=== PATIENT | female | born 1965 | race Caucasian/White ===

== ENCOUNTER 2018-03-07 13:11 | Inpatient (IN) | END 2018-03-11 14:53 | disposition home health service (06) | DRG 30 ==

== ENCOUNTER 2019-03-31 15:30 | Inpatient (IN) | payer MEDICAID ==
[~2019-03-31] VITALS: Ht 170.2 cm; Wt 80.0 kg
[2019-04-01] VITALS (50 sets, daily range): BP systolic 86–140; BP diastolic 61–83; PULSE 60–102; RESP 9–20; Ht 170.2 cm; Wt 80.0 kg
[2019-04-01] MEDS ORDERED: AMLO2.5T78 PO (07:37)
[2019-04-01] MEDS ORDERED: METO-429 PO (07:37)
[2019-04-01] MEDS ORDERED: TRAM50TA PO (07:38)
[2019-04-01] MEDS ORDERED: GABA300C16 PO (07:38)
[2019-04-01] MEDS ORDERED: POLYMYXIN/BACITRACIN 1L IRRIG ONE (08:58)
--- NOTE | 2019-04-01 08:59 | PREAC ---
Date/Time of Note Date/Time of Note DATE: 04/01/19 TIME: 08:55 Anesthesia Eval and Record Evaluation Time Pre-Procedure Interview DATE: 04/01/19 TIME: 08:55 Age 54 Sex female NPO: 8 hrs Preoperative diagnosis Cervical stenosis Planned procedure Anterior Cervical decompression Past Medical History Past Medical History: None Cardio: HTN Surgery & Anesthesia Issues No known issue Meds Anticoagulation: No Beta Allan within 24 hr: Yes Reported Medications Gabapentin* (Gabapentin*) 300 Mg Capsule, 300 MG PO QHS, #60 CAP 04/01/19 Tramadol Hcl* (Ultram*) 50 Mg Tablet, 100 MG PO QHS PRN for PAIN, TAB 04/01/19 Amlodipine Besylate* (Amlodipine Besylate*) 2.5 Mg Tablet, 2.5 MG PO QHS, #30 TAB 04/01/19 Metoprolol Tartrate* (Lopressor*) 50 Mg Tab, 50 MG PO QHS, #60 TAB 04/01/19 Meds reviewed: Yes Allergies Coded Allergies: codeine (Verified Adverse Reaction, Mild, nausea/ vomiting, 04/01/19) Allergies Reviewed: Yes Labs/Studies Labs Reviewed: Reviewed by anesthesiologist Blood Bank Test 04/01/19 07:45 Blood Type O NEGATIVE test: Negative Studies: ECG Pre-procedure Exam Last vitals Vital Signs Date Temp Pulse Resp B/P (MAP) Pulse Ox O2 O2 Flow FiO2 Time Delivery Rate 04/01/19 98.4 60 18 120/73 96 Room Air 08:03 (89) Airway: Adequate mouth opening, Adequate thyromental dist Mallampati: Mallampati II Teeth: Normal Lung: Normal Heart: Normal ASA Physical Status ASA physical status: 3 Emergency: None Planned Anesthetic General/MAC: ETT Planned Pain Management Parenteral pain med Pre-operative Attestations Prior to commencing anesthesia and surgery, the patient was re-evaluated, there was verification of: *The patient's identity *The results of appropriate recent lab work and preoperative vital signs *The above evaluation not changing prior to induction *Anesthetic plan, risk benefits, alternative and complications discussed with patient/family; questions answered; patient/family understands, accepts and w ishes to proceed. KAE FELICIANO MD April 01, 2019 08:59
[2019-04-01] MEDS ORDERED: MIDAZOLAM 1 MG/ML 2 ML INJ ONE ×2 (09:22→12:06)
--- NOTE | 2019-04-01 09:23 | HPN ---
Date/Time of Note Date/Time of Note DATE: 04/01/19 TIME: 09:22 Interval H&P Admission Note Pt. seen H&P reviewed: No system changes Discussed with patient and family options of surgery vs no surgery, overall risks 3-5% as printed on my preop consent form GRUPO DIANA MD April 01, 2019 09:23
[2019-04-01] MEDS ORDERED: DEXAMETHASONE 4 MG/ML 5 ML INJ ONE (10:01)
[2019-04-01] MEDS ORDERED: GELATIN SIZE 100 SPONGE ONE (11:11)
[2019-04-01] MEDS ORDERED: THROMBIN 5000 UNIT VIAL ONE (11:11)
[2019-04-01] MEDS ORDERED: PROPOFOL 20 ML ONE (11:36)
[2019-04-01] MEDS ORDERED: CEFAZOLIN 1 GM INJ ONE (11:36)
[2019-04-01] MEDS ORDERED: ROCURONIUM 50 MG INJ ONE (11:36)
[2019-04-01] MEDS ORDERED: LIDOCAINE 2% (SDV) 5 ML INJ ONE (11:36)
[2019-04-01] MEDS ORDERED: ONDANSETRON 4 MG INJ ONE (11:43)
[2019-04-01] MEDS ORDERED: METOCLOPRAMIDE 10 MG INJ ONE (11:43)
--- NOTE | 2019-04-01 12:11 | OPPN ---
Date/Time of Note Date/Time of Note DATE: 04/01/19 TIME: 12:10 Operative Report Preoperative Diagnosis Cervical Myelopathy Postoperative Diagnosis Same Operation/Procedure Performed ACDF C4-7 Surgeon see signature line home care assistant HERNANDEZ Wheatley, ACNP-BC Anesthesia: general Estimated blood loss: 10 - 50 ml's Transfusion Required none Specimen C4-7 disc Grafts/Implants none Complications none GRUPO DIANA MD April 01, 2019 12:11
--- NOTE | 2019-04-01 12:20 | PAC ---
Date/Time of Note Date/Time of Note DATE: 04/01/19 TIME: 12:19 Post-Anesthesia Notes Post-Anesthesia Note Last documented vital signs Vital Signs Date Temp Pulse Resp B/P (MAP) Pulse Ox O2 O2 Flow FiO2 Time Delivery Rate 04/01/19 98.2 12:16 04/01/19 60 18 120/73 96 Room Air 08:03 (89) Activity: WNL Respiratory function: WNL Cardiovascular function: WNL Mental status: Baseline Pain reasonably controlled: Yes Hydration appropriate: Yes Nausea/Vomiting absent: Yes Comments BP:123/61, P:74, Spo2:100%, T:98,8 KAE FELICIANO MD April 01, 2019 12:20
[2019-04-01] MEDS ORDERED: NACL 0.9% 3 ML SYG IV SCH (12:30)
[2019-04-01] MEDS ORDERED: DIPHENHYDRAMINE 50 MG INJ IV PRN (12:30)
[2019-04-01] MEDS ORDERED: METOCLOPRAMIDE 10 MG INJ IV PRN (12:30)
[2019-04-01] MEDS ORDERED: AL HYDROX/MG HYDROX/SIMETH 30 ML CUP PO PRN (12:30)
[2019-04-01] MEDS ORDERED: NALOXONE (0.4 MG/ML) INJ IV PRN (12:30)
[2019-04-01] MEDS ORDERED: ONDANSETRON 4 MG INJ IV PRN (12:30)
[2019-04-01] MEDS ORDERED: MIDAZOLAM 1 MG/ML 2 ML INJ IV PRN (12:30)
[2019-04-01] MEDS ORDERED: HYDROmorphONE 1 MG/5 ML IV SYRINGE IV PRN (12:30)
[2019-04-01] MEDS: NS + KCL 20 MEQ 1,000 ML IV SCH ×2 (13:01→23:17)
[2019-04-01] MEDS: DOCUSATE SODIUM 100 MG CAP PO SCH ×2 (13:03→21:46)
[2019-04-01] MEDS: HYDROmorphONE 1 MG/5 ML IV SYRINGE IV PRN ×2 (13:05→13:15)
[2019-04-01] MEDS: FENTAnyl 50 MCG/ML VIAL IV PRN ×4 (14:17→15:15)
[2019-04-01] MEDS: CEFAZOLIN 2 GM/50 ML (PMX) 50 ML IVPB SCH ×2 (14:19→23:16)
[2019-04-01] MEDS: ONDANSETRON 4 MG INJ IV PRN ×2 (17:11→20:40)
[2019-04-01] MEDS: HYDROmorphONE 0.5 MG/0.5 ML SYG IV PRN ×2 (17:11→21:13)
--- NOTE | 2019-04-01 18:58 | HP ---
Date/Time of Note Date/Time of Note DATE: 04/01/19 TIME: 18:51 Assessment/Plan VTE Prophylaxis Risk score (from Ns)>0 risk: 5 SCD applied (from Ns): Yes Pharmacological prophylaxis: NA/contraindicated Pharm contraindication: surgical contra Lines/Catheters IV Catheter Type (from Nrsg): A Line Urinary Cath still in place: Yes Reason Cath still needed: urinary retention Assessment/Plan Assessment/Plan -Cervical Myelopathy. S/p ACDF C4-7 Dr. Betts 04/01/2019. Continue IV fluids and postoperative antibiotics, cervical collar. Continue [place] and Dilaudid for pain and Zofran as needed for nausea. -Hypertension, continue metoprolol and Norvasc. Further recommendations based on clinical course. Plan of care discussed with Dr. Kapoor. HPI/ROS Admit Date/Time Admit Date/Time April 01, 2019 at 06:41 Hx of Present Illness The patient is a 54-year-old female with history of hypertension and prior cervical surgery was evaluated by Dr. Betts for cervical myelopathy. Patient was brought to the hospital and underwent a cervical decompression and fusion. Postoperatively patient is experiencing pain and patient is admitted to intensive care unit for further management. Patient denies any nausea and vomi ting. ROS Point review of systems negative except for what mentioned in HPI PMH/Family/Social Past Medical History Medical History: hypertension Medications Current Medications Acetaminophen/ Hydrocodone Bitart ([place] (5/325)) 1 tab Q4H PRN PO .PAIN 1-5; Start 04/01/19 at 12:30 Ondansetron HCl (Zofran Inj) 4 mg Q6H PRN IV NAUSEA/VOMITING Last administered on 04/01/19at 17:11; Admin Dose 4 MG; Start 04/01/19 at 12:30 Al Hydrox/Mg Hydrox/Simethicone (Mag-Al Plus) 15 ml Q4H PRN PO .CONSTIPATION; Start 04/01/19 at 12:30 Docusate Sodium (Colace) 100 mg BID PO Last administered on 04/01/19at 13:03; Admin Dose 100 MG; Start 04/01/19 at 12:30 IV Flush (NS 3 ml) 3 ml PER PROTOCOL IV ; Start 04/01/19 at 12:30 Naloxone HCl (Narcan) 0.2 mg Q2M PRN IV RR 8 BREATHS/MIN OR LESS; Start 04/01/19 at 12:30 Cefazolin Sodium/ Dextrose 50 ml @ 100 mls/hr Q8 IVPB Last administered on 04/01/19at 14:19; Admin Dose 100 MLS/HR; Start 04/01/19 at 14:00 Potassium Chloride/Sodium Chloride 1,000 ml @ 100 mls/hr Q10H IV Last administered on 04/01/19at 13:01; Admin Dose 100 MLS/HR; Start 04/01/19 at 12:30 Hydromorphone HCl (Dilaudid) 0.5 mg Q4H PRN IV SEVERE PAIN LEVEL 7-10 Last administered on 04/01/19at 17:11; Admin Dose 0.5 MG; Start 04/01/19 at 12:30 Coded Allergies: codeine (Verified Adverse Reaction, Mild, nausea/ vomiting, 04/01/19) Past Surgical History Past Surgical Hx: other (Status post posterior cervical decompression and fusion in February 2018) Social History Alcohol Use: none Smoking Status: Current some day smoker Drug Use: none Exam/Review of Systems Vital Signs Vitals Vital Signs Date Temp Pulse Resp B/P (MAP) Pulse Ox O2 O2 Flow FiO2 Time Delivery Rate 04/01/19 98.8 75 11 112/83 95 Room Air 18:00 (93) 04/01/19 2.0 16:10 Exam Constitutional: alert, oriented Head: normocephalic Neck: other (Status post surgery with anterior incision, cervical collar) Respiratory: clear to auscultation Cardiovascular: regular rate and rhythm Gastrointestinal: soft, non-tender Musculoskeletal: nl extremities to inspection Extremities: normal pulses ROBE CALLES April 01, 2019 18:58
[2019-04-01] MEDS: METOPROLOL 50 MG TAB PO SCH (21:00)
[2019-04-01] MEDS: AMLODIPINE 2.5 MG TAB PO SCH (21:00)
[2019-04-02] VITALS (18 sets, daily range): BP systolic 106–130; BP diastolic 69–118; PULSE 64–109; RESP 10–22
[2019-04-02] MEDS: ONDANSETRON 4 MG INJ IV PRN ×2 (04:12→11:42)
[2019-04-02] MEDS: HYDROmorphONE 0.5 MG/0.5 ML SYG IV PRN ×2 (04:22→11:42)
[2019-04-02] MEDS: CEFAZOLIN 2 GM/50 ML (PMX) 50 ML IVPB SCH ×2 (06:01→13:55)
[2019-04-02] MEDS: NS + KCL 20 MEQ 1,000 ML IV SCH (10:21)
[2019-04-02] MEDS: DOCUSATE SODIUM 100 MG CAP PO SCH ×2 (10:21→20:50)
--- NOTE | 2019-04-02 14:13 | PN ---
Date/Time of Note Date/Time of Note DATE: 04/02/19 TIME: 14:13 Assessment/Plan VTE Prophylaxis Risk score (from Nsg)>0 risk: 9 SCD applied (from Nsg): Yes SCD contraindicated: low risk/ambulating Pharmacological prophylaxis: NA/contraindicated Pharm contraindication: low risk/ambulating Lines/Catheters IV Catheter Type (from Nrsg): Saline Lock [place] line still needed: No Urinary Cath still in place: No Assessment/Plan Assessment/Plan Impression s/p ACDF C4-7. POD #[address] cspine stable , well placed screws and hardware surgical site: CDI pain well controlled Plan okay to downgrade stable for dc in am and follow up in 2 weeks collar when oob x 6 weeks IS x 10 dc pena Result Diagram: 04/02/1942904/02/19429 Results 24hrs Laboratory Tests Test 04/02/19 04:30 04/02/19 04:59 Hemoglobin 12.5 Hematocrit 37.5 Sodium Level 137 Potassium Level 4.3 Chloride Level 105 Carbon Dioxide Level 25 Anion Gap 7 Blood Urea Nitrogen 13 Creatinine 0.61 Est Glomerular Filtrat Rate mL/min > 60 Glucose Level 128 Calcium Level 8.7 Lab Scanned Report REFERENCE LAB Subjective 24 Hr Interval Summary Free Text/Dictation Neurosurgery S: S/P PCDF C4-7. POD #1 Exam/Review of Systems Exam Vitals Vital Signs Date Temp Pulse Resp B/P (MAP) Pulse Ox O2 O2 Flow FiO2 Time Delivery Rate 04/02/19 86 11 116/78 95 Room Air 12:00 (91) 04/02/19 98.4 04:00 04/01/19 2.0 16:10 Intake and Output 04/01/19 04/01/19 04/02/19 1515:00 23:00 07:00 IntakeIntake Total 1550 ml 1210 ml 800 ml OutputOutput Total 220 ml 1515 ml 875 ml BalanceBalance 1330 ml -305 ml -75 ml Neurological: other (MS: AAOX4 CN:PERRL M: FC x 4 , no new focal def. ) Results Results 24hrs Laboratory Tests Test 04/02/19 04:30 04/02/19 04:59 Hemoglobin 12.5 Hematocrit 37.5 Sodium Level 137 Potassium Level 4.3 Chloride Level 105 Carbon Dioxide Level 25 Anion Gap 7 Blood Urea Nitrogen 13 Creatinine 0.61 Est Glomerular Filtrat Rate mL/min > 60 Glucose Level 128 Calcium Level 8.7 Lab Scanned Report REFERENCE LAB Medications Medication Current Medications Acetaminophen/ Hydrocodone Bitart ([place] (5/325)) 1 tab Q4H PRN PO .PAIN 1-5; Start 04/01/19 at 12:30 Ondansetron HCl (Zofran Inj) 4 mg Q6H PRN IV NAUSEA/VOMITING Last administered on 04/02/19 11:42; Admin Dose 4 MG; Start 04/01/19 at 12:30 Al Hydrox/Mg Hydrox/Simethicone (Mag-Al Plus) 15 ml Q4H PRN PO .CONSTIPATION; Start 04/01/19 at 12:30 Docusate Sodium (Colace) 100 mg BID PO Last administered on 04/02/19 10:21; Admin Dose 100 MG; Start 04/01/19 at 12:30 IV Flush (NS 3 ml) 3 ml PER PROTOCOL IV ; Start 04/01/19 at 12:30 Naloxone HCl (Narcan) 0.2 mg Q2M PRN IV RR 8 BREATHS/MIN OR LESS; Start 04/01/19 at 12:30 Cefazolin Sodium/ Dextrose 50 ml @ 100 mls/hr Q8 IVPB Last administered on 04/02/19at 13:55; Admin Dose 100 MLS/HR; Start 04/01/19 at 14:00 Potassium Chloride/Sodium Chloride 1,000 ml @ 100 mls/hr Q10H IV Last administered on 04/02/19 10:21; Admin Dose 100 MLS/HR; Start 04/01/19 at 12:30 Hydromorphone HCl (Dilaudid) 0.5 mg Q4H PRN IV SEVERE PAIN LEVEL 7-10 Last administered on 04/02/19 11:42; Admin Dose 0.5 MG; Start 04/01/19 at 12:30 Amlodipine Besylate (Norvasc) 2.5 mg QHS PO ; Start 04/01/19 at 21:00 Metoprolol Tartrate (Lopressor) 50 mg QHS PO ; Start 04/01/19 at 21:00 GRUPO DIANA MD April 02, 2019 14:13
--- NOTE | 2019-04-02 19:03 | PN ---
Date/Time of Note Date/Time of Note DATE: 04/02/19 TIME: 19:01 Assessment/Plan VTE Prophylaxis Risk score (from Ns)>0 risk: 9 SCD applied (from Ns): Yes Pharmacological prophylaxis: NA/contraindicated Pharm contraindication: surgical contra Lines/Catheters IV Catheter Type (from Nrsg): Saline Lock Urinary Cath still in place: No Assessment/Plan Hospital Course Patient is awake alert, pain is adequately controlled stable to transfer to medical surgical floor. Continue PT with cervical collar. If patient continues to improve anticipate discharge home tomorrow morning. Assessment/Plan -Cervical Myelopathy. S/p ACDF C4-7 Dr. Betts 04/01/2019. Continue IV fluids and postoperative antibiotics, cervical collar. Continue [place] and Dilaudid for pain and Zofran as needed for nausea. -Hypertension, continue metoprolol and Norvasc. Further recommendations based on clinical course. Plan of care discussed with Dr. Kapoor. Result Diagram: 04/02/19 0430 04/02/19 0430 Results 24hrs Laboratory Tests Test 04/02/19 04:30 04/02/19 04:59 Hemoglobin 12.5 Hematocrit 37.5 Sodium Level 137 Potassium Level 4.3 Chloride Level 105 Carbon Dioxide Level 25 Anion Gap 7 Blood Urea Nitrogen 13 Creatinine 0.61 Est Glomerular Filtrat Rate mL/min > 60 Glucose Level 128 Calcium Level 8.7 Lab Scanned Report REFERENCE LAB Exam/Review of Systems Exam Vitals Vital Signs Date Temp Pulse Resp B/P (MAP) Pulse Ox O2 O2 Flow FiO2 Time Delivery Rate 04/02/19 12 116/69 97 Room Air 16:00 (85) 04/02/19 76 16:00 04/02/19 98.3 15:00 04/01/19 2.0 16:10 Intake and Output 04/01/19 04/01/19 04/02/19 1515:00 23:00 07:00 IntakeIntake Total 1550 ml 1210 ml 800 ml OutputOutput Total 220 ml 1515 ml 875 ml BalanceBalance 1330 ml -305 ml -75 ml Exam Constitutional: alert, oriented Head: normocephalic Neck: other (Status post surgery with anterior incision, cervical collar) Respiratory: clear to auscultation Cardiovascular: regular rate and rhythm Gastrointestinal: soft, non-tender Musculoskeletal: nl extremities to inspection Extremities: normal pulses Results Results 24hrs Laboratory Tests Test 04/02/19 04:30 04/02/19 04:59 Hemoglobin 12.5 Hematocrit 37.5 Sodium Level 137 Potassium Level 4.3 Chloride Level 105 Carbon Dioxide Level 25 Anion Gap 7 Blood Urea Nitrogen 13 Creatinine 0.61 Est Glomerular Filtrat Rate mL/min > 60 Glucose Level 128 Calcium Level 8.7 Lab Scanned Report REFERENCE LAB Medications Medication Current Medications Acetaminophen/ Hydrocodone Bitart ([place] (5/325)) 1 tab Q4H PRN PO .PAIN 1-5; Start 04/01/19 at 12:30 Ondansetron HCl (Zofran Inj) 4 mg Q6H PRN IV NAUSEA/VOMITING Last administered on 04/02/19 11:42; Admin Dose 4 MG; Start 04/01/19 at 12:30 Al Hydrox/Mg Hydrox/Simethicone (Mag-Al Plus) 15 ml Q4H PRN PO .CONSTIPATION; Start 04/01/19 at 12:30 Docusate Sodium (Colace) 100 mg BID PO Last administered on 04/02/19at 10:21; Admin Dose 100 MG; Start 04/01/19 at 12:30 IV Flush (NS 3 ml) 3 ml PER PROTOCOL IV ; Start 04/01/19 at 12:30 Naloxone HCl (Narcan) 0.2 mg Q2M PRN IV RR 8 BREATHS/MIN OR LESS; Start 04/01/19 at 12:30 Cefazolin Sodium/ Dextrose 50 ml @ 100 mls/hr Q8 IVPB Last administered on 04/02/19at 13:55; Admin Dose 100 MLS/HR; Start 04/01/19 at 14:00 Hydromorphone HCl (Dilaudid) 0.5 mg Q4H PRN IV SEVERE PAIN LEVEL 7-10 Last administered on 04/02/19at 11:42; Admin Dose 0.5 MG; Start 04/01/19 at 12:30 Amlodipine Besylate (Norvasc) 2.5 mg QHS PO ; Start 04/01/19 at 21:00 Metoprolol Tartrate (Lopressor) 50 mg QHS PO ; Start 04/01/19 at 21:00 ROBE CALLES April 02, 2019 19:03
[2019-04-02] MEDS ORDERED: ONDANSETRON 4 MG TAB PO PRN (20:00)
[2019-04-02] MEDS: METOPROLOL 50 MG TAB PO SCH (20:49)
[2019-04-02] MEDS: AMLODIPINE 2.5 MG TAB PO SCH (20:50)
[2019-04-02] MEDS: HYDROCODONE/APAP (5/325) TAB PO PRN (20:51)
[2019-04-03] MEDS: HYDROCODONE/APAP (5/325) TAB PO PRN ×2 (02:42→08:16)
[2019-04-03 08:00] VITALS: BP 120/90; PULSE 74; RESP 16
[2019-04-03] MEDS: DOCUSATE SODIUM 100 MG CAP PO SCH (08:16)
--- NOTE | 2019-04-03 11:26 | PN ---
DATE: 04/03/2019 SUBJECTIVE: Follow up on C-spine surgery for cervical myelopathy. The patient reports improvement i n postoperative pain. Denies any chest pain or shortness of breath. The patient had low grade tempe rature last night and this morning she is afebrile. Denies any chest pain or abdominal pain. No rep orted vomiting. The patient moves all extremities. NEUROLOGIC: The patient is awake, alert, fairly oriented. VITAL SIGNS: Temperature 98, pulse 74, respirations 16, blood pressure 120/90, O2 saturation 98% on room air. HEENT: Atraumatic, normocephalic. Conjunctivae normal. Nose and ears normal. NECK: Incision is clean. No mass. No crepitus. CHEST: Fairly clear. No use of accessory muscles. CARDIOVASCULAR: S1, S2 normal, no murmur. ABDOMEN: Soft, nontender. Bowel sounds . EXTREMITIES: No leg edema. Pneumovax all extremities. GENERAL: The patient is awake, alert, fairly oriented. LABORATORY DATA: Hemoglobin 12.5. Sodium 137, potassium 4.2, BUN 13, creatinine 0.6. IMPRESSION: 1. Cervical myelopathy status post ACDF C4 through C7. Surgical site clean. 2. Hypertension. Blood pressure reasonably controlled with amlodipine and metoprolol. Continue pos top care. Discharge planning whenever cleared by neurosurgery. Dictated By: PEARL VOGT/JALEN Conf#: [id number] DID#: [id number]
[2019-04-03] MEDS ORDERED: MUPIROCIN 2% 22 GM OINT TOP SCH (21:00)
== END 2019-04-03 12:30 | disposition left against medical advice (07) | DRG 473 ==
LOC: REC 04-01 06:41 → ICU 04-01 17:15
PROVIDERS: ADMIT Neurological Surgery; ATTEND Neurological Surgery
PROC: 0RB30ZZ Excision of Cervical Vertebral Disc, Open Approach (ICD-10-PCS; 2019-04-01)
PROC: 4A11X4G Monitoring of Peripheral Nervous Electrical Activity, Intraoperative, External Approach (ICD-10-PCS; 2019-04-01)
PROC: 0RG20A0 Fusion of 2 or more Cervical Vertebral Joints with Interbody Fusion Device, Anterior Approach, Anterior Column, Open Approach (ICD-10-PCS; principal; 2019-04-01 09:00)
DX: M47.12 Other spondylosis with myelopathy, cervical region (principal); M47.22 Other spondylosis with radiculopathy, cervical region; I10 Essential (primary) hypertension; F17.200 Nicotine dependence, unspecified, uncomplicated
CPT/HCPCS: 72020; 72125; 80048; 84703; 85014; 85018; 86850; 86900; 86901; 87081; 87086; 88304; 97116; 97162; 97530; J0690; J1100; J1170; J2250; J2405; J2765; J3010; J3480